=== PATIENT | female | born 1980 | race Two or more races ===

== ENCOUNTER 2021-01-07 17:57 | Inpatient (IN) | payer OTHER ==
[~2021-01-07] VITALS: Ht 160 cm; Wt 79.4 kg
--- NOTE | 2021-01-07 18:18 | NUR ---
TO ER BED 4, C/O ABDOMINAL PAIN FOR FEW MONTHS, AAOX4, BREATHING EVEN AND NON LABORED
--- NOTE | 2021-01-07 18:41 | NUR ---
SALINE LOCK ESTABLISHED AND BLOOD DRAWN
--- NOTE | 2021-01-07 18:55 | NUR ---
URINE SENT TO LAB
[2021-01-07 19:09] LABS: BILIRUBIN,URINE NEGATIVE (NEGATIVE); COLOR,URINE YELLOW (YELLOW); LEUKOCYTE ESTERASE ,URINE SMALL (NEGATIVE); NITRITE, URINE NEGATIVE (NEGATIVE); PROTEIN,URINE NEGATIVE (NEGATIVE); UGLUCOSE NEGATIVE (NEGATIVE); UROBILINOGEN,URINE 0.2 EU/dL (0.2)
[2021-01-07 19:10] LABS: ALBUMIN 3.8 g/dL (3.4-5.0); BILIRUBIN,DIRECT 0.1 mg/dL (0.0-0.2); BILIRUBIN,TOTAL 0.3 mg/dL (0.2-1.0); CREATININE 0.8 mg/dL (0.6-1.3); POTASSIUM 3.5 mmol/L (3.5-5.1)
[2021-01-07 19:11] LABS: CALCIUM, SERUM 5.7 mg/dL (8.5-10.1)
[2021-01-07 19:17] LABS: BACTERIA,URINE 2+ /HPF (None Seen)
[2021-01-07 19:37] LABS: BASOPHILS % (AUTO) 0.5 % (0.0-2.0); EOSINOPHILS % (AUTO) 4.4 % (0.0-6.0); HEMATOCRIT 35 % (33-45); HEMOGLOBIN 11.3 g/dL (11.5-14.8); LYMPHOCYTES # (AUTO) 2.7 K/uL (0.8-4.8); LYMPHOCYTES % (AUTO) 34.2 % (20.0-44.0); MEAN CORPUSCULAR HGB CONC 32 g/dl (31.0-36.0); MEAN CORPUSCULAR VOLUME 74 fL (82-100); MONOCYTES # (AUTO) 0.4 K/uL (0.1-1.30); NEUTROPHILS # (AUTO) 4.3 K/uL (1.8-8.9); NEUTROPHILS % (AUTO) 55.9 % (43.0-81.0); PLATELET COUNT (AUTO) 359 K/uL (150-450); RED BLOOD CELL COUNT(AUTO) 4.78 MIL/uL (4.0-5.2); WHITE BLOOD COUNT (AUTO) 7.8 K/uL (4.3-11.0)
--- NOTE | 2021-01-07 19:42 | NUR ---
TAKEN TO CT
--- NOTE | 2021-01-07 19:54 | NUR ---
CALLED [facility], PAGED GENERATING PLANT SUPERINTENDENT HALLIE LUNA FOR ADMISSION
[2021-01-07] MEDS ORDERED: CIPROFLOXACIN HCL 500 MG TABLET PO ONE (20:00)
[2021-01-07] MEDS ORDERED: Calcium Gluconate 1GM/10ML 9.3 MEQ in IV D5W 250 ML IV ONE (20:00)
--- NOTE | 2021-01-07 20:06 | NUR ---
COVID SWAB COLLECTED AND SENT TO LAB
[2021-01-07] MEDS ORDERED: CIPROFLOXACIN HCL 500 MG TABLET ONE (20:09)
[2021-01-07] MEDS ORDERED: CALCIUM GLUCONATE IV ONE (20:12)
[2021-01-07] MEDS ORDERED: D5W IV ONE (20:12)
[2021-01-07 20:28] LABS: EOSINOPHILS % (MANUAL) 7 % (0-4); LYMPHOCYTES % (MANUAL) 37 % (16-48); MONOCYTES % (MANUAL) 3 % (0-11.0); NEUTROPHILS % (MANUAL) 53 (42-76)
--- NOTE | 2021-01-07 20:30 | NUR ---
RUBBER CURERDIRECTOR DIABETES NOTES RECEIVED PER FAMILIA THIS 40 YO FEMALE,A/O X4,CHIEF COMPLAINTS OF ABDOMINAL DISTENTION AND FEELING OF SOMETHING MOVING IN HER TUMMY,CT ABDOMEN SHOWS PANCREATIC CYST MEASURING 7.1 CM.NO PAIN AT THE MOMENT.PATIENT CLAIMED THAT SHE HAS PANCREATIC CYST 10 YEARS AGO MEASURING 2.1 CM.AMBULATE WITH STEADY GAIT,NO SKIN ISSUES.NPO STATUS ORDERED.IV ROCEPHIN STARTED,NO ADVERSE REACTION NOTED.CALL LIGHT IN REACH,NEEDS ANTICIPATED. Addendum: 01/08/21 at 0201 by DEANDRE VALLE RN PATIENT RECEIVED AT 2330 01/07/21
--- NOTE | 2021-01-07 20:38 | NUR ---
CALLED [facility], PAGED TELEGRAPHER AGENT HALLIE LUNA WOOD MECHANIST FOR ADMISSION
[2021-01-07] MEDS ORDERED: HYDROCODONE/APAP 5/325MG TABLET PO PRN (22:00)
[2021-01-07] MEDS ORDERED: ACETAMINOPHEN 325 MG TABLET PO PRN (22:00)
[2021-01-07] MEDS ORDERED: Z GUARD REMEDY 2 OZ OINT TP PRN (22:00)
[2021-01-07] MEDS ORDERED: ONDANSETRON HCL/PF 4 MG/2 ML VIAL IVP PRN (22:00)
--- NOTE | 2021-01-07 23:19 | NUR ---
REPORT GIVEN TO TAO KRAMERDEANDRE
[2021-01-07] MEDS ORDERED: CEFTRIAXONE 1 G in IV D5W 50 ML IV SCH (23:30)
--- NOTE | 2021-01-07 23:30 | NUR ---
PATIENT TRANSFERRED UNDER ACLS
[2021-01-08] MEDS ORDERED: CEFTRIAXONE 1 G VIAL ONE (00:15)
[2021-01-08 01:28] VITALS: BP 150/106
[2021-01-08] MEDS ORDERED: IV NS 0.9% 1,000 ML IV PRN (03:00)
[2021-01-08 04:46] VITALS: BP 147/81
--- NOTE | 2021-01-08 06:39 | NUR ---
CLINICAL DATA ASSISTANT NOTES FAIRLY RESTED,DENIES ABDOMINAL PAIN.IVF INFUSING WELL RIGHT AC SALINE LOCK VIA IV PUMP.KEPT NPO ORDERED
[2021-01-08 06:45] LABS: BASOPHILS % (AUTO) 0.4 % (0.0-2.0); EOSINOPHILS % (AUTO) 5.9 % (0.0-6.0); HEMATOCRIT 32 % (33-45); HEMOGLOBIN 10.3 g/dL (11.5-14.8); LYMPHOCYTES # (AUTO) 2.6 K/uL (0.8-4.8); LYMPHOCYTES % (AUTO) 36.2 % (20.0-44.0); MEAN CORPUSCULAR HGB CONC 33 g/dl (31.0-36.0); MEAN CORPUSCULAR VOLUME 73 fL (82-100); MONOCYTES # (AUTO) 0.4 K/uL (0.1-1.30); MONOCYTES % (AUTO) 5.7 % (2.0-12.0); NEUTROPHILS # (AUTO) 3.7 K/uL (1.8-8.9); NEUTROPHILS % (AUTO) 51.8 % (43.0-81.0); PLATELET COUNT (AUTO) 298 K/uL (150-450); WHITE BLOOD COUNT (AUTO) 7.2 K/uL (4.3-11.0)
[2021-01-08 06:58] LABS: CALCIUM, SERUM 8.4 mg/dL (8.5-10.1); CREATININE 0.7 mg/dL (0.6-1.3); MAGNESIUM 2.1 mg/dL (1.8-2.4); PHOSPHORUS 4.3 mg/dL (2.5-4.9); POTASSIUM 3.6 mmol/L (3.5-5.1)
[2021-01-08 07:30] LABS: THYROID STIMULATING HORMONE 2.827 uIU/mL (0.358-3.74)
[2021-01-08] MEDS ORDERED: PANTOPRAZOLE 40 MG TABLET.DR PO SCH (07:30)
--- NOTE | 2021-01-08 07:45 | NUR ---
TELE/RN OPENING NOTES RECEIVED PATIENT IN BED, ALERT AND ORIENTED X3, ABLE TO MAKE NEEDS KNOWN. STABLE ON ROOM AIR. NO DISTRESS NOTED AT THIS TIME. ON NPO FOR CT SCAN ABDOMEN WITH CONTRAST TODAY. IV ACCESS ON LEFT AC #20G IS INTACT AND PATENT WITH RUNNING NS @75 ML/HR. SAFETY PRECAUTIONS IN PLACED: BED LOCKED ON LOWEST POSITION, SIDE RAILS UPX2, CALL LIGHT WITHIN EASY REACH. WILL CONTINUE TO MONITOR.
[2021-01-08 08:00] VITALS: BP 132/93
[2021-01-08] MEDS ORDERED: BARIUM SULFATE SUSP 450 ML BOTTLE PO ONE (08:33)
[2021-01-08] MEDS ORDERED: IOHEXOL-350 100 ML VIAL IV ONE (08:42)
[2021-01-08] MEDS ORDERED: IV NS 0.9% 250 ML IV ONE (08:42)
--- NOTE | 2021-01-08 09:00 | NUR ---
TELE/RN NOTES- CT SCAN STAFF PICKED UP PATIENT TO DO CT SCAN IN THE ABDOMEN WITH CONTRAST.
[2021-01-08 09:51] LABS: EOSINOPHILS % (MANUAL) 4 % (0-4); LYMPHOCYTES % (MANUAL) 39 % (16-48); MONOCYTES % (MANUAL) 6 % (0-11.0); NEUTROPHILS % (MANUAL) 51 (42-76)
--- NOTE | 2021-01-08 16:30 | NUR ---
TELE/TAPE FOLDING MACHINE OPERATOR NOTES PATIENT IS ALERT AND ORIENTED X3, ABLE TO MAKE NEEDS KNOWN. AMBULATORY AND STABLE ON ROOM AIR. PATIENT REQUESTED DR. JURADO TO RELEASE HER AND WOULD DO FURTHER TESTING AT [facility]. ORDERED DISCHARGE FOR THE PATIENT. ALL BELONGINGS ACCOUNTED FOR. IV ACCESS DISCONTINUED. WALKED PATIENT DOWNSTAIRS AND PATIENT DROVE SELF BACK HOME.
== END 2021-01-08 17:00 | disposition home or self-care (01) | DRG 425 ==
LOC: ER 18:02 → TELE 23:15
PROVIDERS: ADMIT Internal Medicine; ATTEND Internal Medicine
DX: E83.51 Hypocalcemia (principal); K86.2 Cyst of pancreas; N39.0 Urinary tract infection, site not specified; I10 Essential (primary) hypertension; B96.89 Other specified bacterial agents as the cause of diseases classified elsewhere; Z20.822 Contact with and (suspected) exposure to COVID-19
CPT/HCPCS: 36415; 74170-TC; 80048-TC; 80061-TC; 80076-TC; 81001; 82306; 83690-TC; 83735-TC; 83970; 84100-TC; 84443-TC; 84702-TC; 85025-TC; 87081-TC; 87086-TC; C9803; G0378; J0610; J0696; J7030; J7050; J7060; Q9967